=== PATIENT | male | born 1980 | race Caucasian/White ===

== ENCOUNTER 2022-06-17 13:45 | Emergency (ER) | payer OTHER ==
[~2022-06-17] VITALS: Ht 172.7 cm; Wt 106.0 kg
[~2022-06-17 13:45] MED LIST: IBUP-1022 PO; LEVO1TAB39 PO
[2022-06-17 13:46] VITALS: BP 160/80
[2022-06-17] MEDS ORDERED: METO50TA7 (14:47)
[2022-06-17 16:29] LABS: BASO % 0.3 % (0.0-1.0); EOS # 0.1 10^3/uL (0.0-0.5); EOS % 1.2 % (0.0-3.0); HEMATOCRIT 47.9 % (42.0-52.0); HEMOGLOBIN 16.7 g/dl (13.5-17.5); LYMPH % 21.3 % (24.0-44.0); MEAN CORPUSCULAR HEMOGLOBIN 31.4 pg (27.0-33.0); MEAN CORPUSCULAR HGB CONC 34.9 g/dl (32.0-36.5); MONO # 0.5 10^3/uL (0.0-0.8); MONO % 5.6 % (2.0-8.0); NEUTROPHILS # 6.6 10^3/uL (1.5-8.5); NEUTROPHILS % 71.4 % (36.0-66.0); PLATELET COUNT, AUTOMATED 242 10^3/uL (150-450); RED BLOOD COUNT 5.32 10^6/uL (4.30-6.10); WHITE BLOOD COUNT 9.3 10^3/uL (4.0-10.0)
[2022-06-17 16:44] LABS: INR 0.89; PROTHROMBIN TIME 12.3 SECONDS (12.5-14.5)
[2022-06-17 16:45] LABS: PARTIAL THROMBOPLASTIN TIME 30.7 SECONDS (24.8-34.2)
[2022-06-17 17:37] LABS: ALBUMIN 4.7 G/DL (3.2-5.2); ALT/SGPT 75 U/L (7.0-40); BILIRUBIN,DIRECT 0.1 MG/DL (<0.4); BILIRUBIN,TOTAL 0.5 MG/DL (0.3-1.2); BLOOD UREA NITROGEN 16 MG/DL (9-23); CALCIUM LEVEL 10.1 MG/DL (8.5-10.1); CARBON DIOXIDE LEVEL 26 MMOL/L (20-31); CHLORIDE LEVEL 105 MMOL/L (98-107); CK-MB VALUE MASS 1.2 NG/ML (<3.6); CPK CREATINE PHOSPHOKINASE 122 U/L (46-171); CREATININE FOR GFR 0.81 MG/DL (0.70-1.30); FREE T4 1.21 NG/DL (0.89-1.76); GLOMERULAR FILTRATION RATE > 60.0 (>60); GLUCOSE, FASTING 98 MG/DL (60-100); LIPASE 31 U/L (12-53); MB/CK RELATIVE INDEX 0.98 (< OR =4); POTASSIUM SERUM 4.5 MMOL/L (3.5-5.1); SODIUM LEVEL 139 MMOL/L (136-145); TOTAL PROTEIN 7.7 G/DL (5.7-8.2)
[2022-06-17 21:42] LABS: THYROID STIMULATING HORMONE 0.863 uIU/ML (0.55-4.78)
== END 2022-06-17 18:12 | disposition left against medical advice (07) ==
LOC: M ED 13:45
DX: Z53.21 Procedure and treatment not carried out due to patient leaving prior to being seen by health care provider (principal)

== ENCOUNTER → 2022-08-25 | Outpatient (REF) | payer MEDICARE ==
[~2022-08-25] MED LIST changes: +METO50TA7
[2022-08-25 16:38] LABS: HEMATOCRIT 46.9 % (42.0-52.0)
[2022-08-25 16:40] LABS: BASO # 0.1 10^3/uL (0.0-0.2); BASO % 0.8 % (0.0-1.0); EOS # 0.1 10^3/uL (0.0-0.5); EOS % 1.9 % (0.0-3.0); HEMATOCRIT 46.9 % (42.0-52.0); HEMOGLOBIN 15.8 g/dl (13.5-17.5); LYMPH # 1.4 10^3/uL (1.5-5.0); LYMPH % 19.5 % (24.0-44.0); MEAN CORPUSCULAR HEMOGLOBIN 31.8 pg (27.0-33.0); MEAN CORPUSCULAR HGB CONC 33.7 g/dl (32.0-36.5); MEAN CORPUSCULAR VOLUME 94.4 fl (80.0-96.0); MONO # 0.6 10^3/uL (0.0-0.8); MONO % 8.5 % (2.0-8.0); NEUTROPHILS % 68.9 % (36.0-66.0); PLATELET COUNT, AUTOMATED 279 10^3/uL (150-450); RED BLOOD COUNT 4.97 10^6/uL (4.30-6.10); WHITE BLOOD COUNT 7.3 10^3/uL (4.0-10.0)
[2022-08-25 16:47] LABS: ALBUMIN 4.6 G/DL (3.2-5.2); ALKALINE PHOSPHATASE 98 U/L (46-116); ALT/SGPT 107 U/L (7.0-40); AST/SGOT 38 U/L (<34); BILIRUBIN,TOTAL 0.9 MG/DL (0.3-1.2); BLOOD UREA NITROGEN 20 MG/DL (9-23); CALCIUM LEVEL 9.5 MG/DL (8.5-10.1); CARBON DIOXIDE LEVEL 26 MMOL/L (20-31); CHLORIDE LEVEL 104 MMOL/L (98-107); CHOLESTEROL LEVEL 202 MG/DL (<200); CHOLESTEROL RISK RATIO 4.36 (<5); CREATININE FOR GFR 0.84 MG/DL (0.70-1.30); FERRITIN 104.3 NG/ML (10.5-307.3); GLOMERULAR FILTRATION RATE > 60.0 (>60); GLUCOSE, FASTING 99 MG/DL (60-100); HDL CHOLESTEROL 46.3 MG/DL (>40); IRON (FE) 216 UG/DL (65-175); NON-HDL-C 156 MG/DL; SODIUM LEVEL 137 MMOL/L (136-145); TOTAL IRON BINDING CAPACITY 360 UG/DL (250-425); TOTAL PROTEIN 7.5 G/DL (5.7-8.2); TRIGLYCERIDES LEVEL 438 MG/DL (<150)
[2022-08-25 17:23] LABS: VITAMIN B12 LEVEL 287 PG/ML (211-911)
== END ==
LOC: M LAB REF 16:09
PROVIDERS: ATTEND Nurse Practitioner Adult Health
DX: I10 Essential (primary) hypertension (principal); F43.10 Post-traumatic stress disorder, unspecified; R94.5 Abnormal results of liver function studies; D50.9 Iron deficiency anemia, unspecified

== ENCOUNTER → 2022-09-01 | Outpatient (REF) | payer MEDICARE | LOC: M LAB REF 16:20 | PROVIDERS: ATTEND Nurse Practitioner Adult Health | DX: R74.01 Elevation of levels of liver transaminase levels (principal) ==

== ENCOUNTER → 2022-09-10 | Outpatient (CLI) | payer MEDICARE | LOC: M RAD 06:49 | PROVIDERS: ATTEND Nurse Practitioner Adult Health | DX: R94.5 Abnormal results of liver function studies (principal) ==

== ENCOUNTER → 2022-11-23 | Outpatient (CLI) | payer MEDICARE | LOC: M CARPUL 08:17 | PROVIDERS: ATTEND Nurse Practitioner Adult Health | DX: I42.9 Cardiomyopathy, unspecified (principal) ==

== ENCOUNTER → 2023-04-18 | Outpatient (REF) | payer MEDICARE ==
[2023-04-18 18:52] LABS: ALKALINE PHOSPHATASE 119 U/L (46-116); ALT/SGPT 95 U/L (7.0-40); AST/SGOT 60 U/L (<34); BILIRUBIN,TOTAL 0.4 MG/DL (0.3-1.2); BLOOD UREA NITROGEN 19 MG/DL (9-23); CALCIUM LEVEL 9.1 MG/DL (8.5-10.1); CARBON DIOXIDE LEVEL 26 MMOL/L (20-31); CHLORIDE LEVEL 99 MMOL/L (98-107); CREATININE FOR GFR 0.96 MG/DL (0.70-1.30); GLOMERULAR FILTRATION RATE > 60.0 (>60); GLUCOSE, FASTING 92 MG/DL (60-100); SODIUM LEVEL 133 MMOL/L (136-145); TOTAL PROTEIN 7.2 G/DL (5.7-8.2)
== END ==
LOC: M LAB REF 17:02
PROVIDERS: ATTEND Nurse Practitioner Family
DX: I10 Essential (primary) hypertension (principal)

== ENCOUNTER 2024-01-22 21:11 | Emergency (ER) | payer MEDICARE ==
[~2024-01-22] VITALS: Ht 172.7 cm; Wt 118.3 kg
[2024-01-22] MEDS: diphenhydrAMINE 50MG/ML VIAL IM ONE (21:35)
[2024-01-22] MEDS: LORazepam 2 MG/ML 1ML VIAL IM ONE (21:35)
[2024-01-22] MEDS: HALOPERIDOL LACTATE 5MG/ML VIAL IM ONE (21:35)
[2024-01-22 21:39] LABS: HEMATOCRIT 43.4 % (42.0-52.0); MEAN CORPUSCULAR HEMOGLOBIN 32.1 pg (27.0-33.0); MEAN CORPUSCULAR HGB CONC 34.6 g/dl (32.0-36.5); MEAN CORPUSCULAR VOLUME 92.9 fl (80.0-96.0); PLATELET COUNT, AUTOMATED 401 10^3/uL (150-450); RED BLOOD COUNT 4.67 10^6/uL (4.30-6.10); WHITE BLOOD COUNT 10.8 10^3/uL (4.0-10.0)
[2024-01-22 22:08] LABS: ALBUMIN 4.4 G/DL (3.2-5.2); ALKALINE PHOSPHATASE 120 U/L (46-116); ALT/SGPT 43 U/L (7.0-40); AST/SGOT 33 U/L (<34); BILIRUBIN,DIRECT < 0.1 MG/DL (<0.4); BILIRUBIN,TOTAL 0.3 MG/DL (0.3-1.2); BLOOD UREA NITROGEN 17 MG/DL (9-23); CALCIUM LEVEL 10.1 MG/DL (8.5-10.1); CARBON DIOXIDE LEVEL 23 MMOL/L (20-31); CHLORIDE LEVEL 107 MMOL/L (98-107); CREATININE FOR GFR 1.18 MG/DL (0.70-1.30); GLOMERULAR FILTRATION RATE > 60.0 (>60); GLUCOSE, FASTING 148 MG/DL (60-100); POTASSIUM SERUM 3.7 MMOL/L (3.5-5.1); SALICYLATE LEVEL < 3.0 MG/DL (<30); SODIUM LEVEL 140 MMOL/L (136-145); TOTAL PROTEIN 7.7 G/DL (5.7-8.2)
[2024-01-22 22:11] LABS: THYROID STIMULATING HORMONE 3.934 uIU/ML (0.55-4.78)
[2024-01-22 22:17] LABS: AMPHETAMINES LEVEL URINE NEGATIVE (NEGATIVE); BARBITURATES URINE NEGATIVE (NEGATIVE); BENZODIAZEPINES URINE NEGATIVE (NEGATIVE); COCAINE METABOLITE URINE NEGATIVE (NEGATIVE); CPK CREATINE PHOSPHOKINASE 140 U/L (46-171); METHADONE URINE NEGATIVE (NEGATIVE); OPIATES URINE NEGATIVE (NEGATIVE); PHENCYCLIDINE URINE NEGATIVE (NEGATIVE)
[2024-01-22 22:24] LABS: CANNABINOIDS URINE POSITIVE (NEGATIVE)
[2024-01-22] MEDS ORDERED: LORazepam 2 MG TAB PO PRN (23:15)
[2024-01-23] MEDS ORDERED: HYDR-3363 PO (08:48)
[2024-01-23] MEDS ORDERED: D 1010002 PO (08:48)
[2024-01-23] MEDS ORDERED: LITH45TASA PO (08:48)
[2024-01-23] MEDS ORDERED: LOSA100T46 PO (08:48)
[2024-01-23] MEDS ORDERED: CYAN500T3 PO (08:48)
[2024-01-23] MEDS ORDERED: OMEP-173 PO (08:48)
[2024-01-23] MEDS ORDERED: ATOR1TAB21 PO (08:48)
[2024-01-23] MEDS ORDERED: FENO48TA8 PO (08:48)
[2024-01-23] MEDS ORDERED: LATU80TA2 PO (08:48)
[2024-01-23] MEDS ORDERED: DULO1CAP6 PO (08:48)
[2024-01-23] MEDS ORDERED: HOME MED LIST COMPLETE! XX SCH (08:50)
[2024-01-23] MEDS: FOLIC ACID 1MG TAB PO SCH (09:15)
[2024-01-23] MEDS: THIAMINE 100 MG TAB PO SCH (09:15)
[2024-01-23] MEDS: MULTIVITAMINS/MINERALS THERAP 1 TAB PO SCH (09:15)
[2024-01-23 09:16] VITALS: BP 178/98
[2024-01-23] MEDS: LOSARTAN 50MG TABLET PO SCH (09:16)
[2024-01-23 10:33] LABS: LITHIUM LEVEL 0.34 MMOL/L (1.0-1.20)
[2024-01-23] MEDS: NICOTINE 21MG/24HR 1 EA TRANSDERMAL TD SCH (11:54)
[2024-01-23 15:21] VITALS: BP 180/98; TEMP 97.2; O2SAT 94
[2024-01-23] MEDS ORDERED: LITHIUM CARBONATE 150 MG CAP PO SCH (21:00)
[2024-01-24] MEDS ORDERED: DULoxetine 30MG CAPSULE (CYMBALTA) PO SCH (09:00)
== END 2024-01-23 15:47 | disposition home or self-care (01) ==
LOC: M ED 21:11 → EDBD 21:11 → M ED 01-23 15:47
DX: F43.0 Acute stress reaction (principal); F10.120 Alcohol abuse with intoxication, uncomplicated; F19.10 Other psychoactive substance abuse, uncomplicated; R00.0 Tachycardia, unspecified; Z79.899 Other long term (current) drug therapy
CPT/HCPCS: 51701; 70450; 72125; 73130; 80048; 80076; 80143; 80178; 80307; 82077; 82550; 84443; 85027; 87635; 93005; 96372; 99285; J1200; J1630; J2060

== ENCOUNTER 2024-03-03 15:17 | Inpatient (IN) | payer MEDICARE, OTHER ==
[~2024-03-03] VITALS: Ht 172.7 cm; Wt 114.0 kg
[~2024-03-03 15:17] MED LIST changes: +ATOR1TAB21 PO; +CYAN500T3 PO; +D 1010002 PO; +DULO1CAP6 PO; +FENO48TA8 PO; +HYDR-3363 PO; +LATU80TA2 PO; +LITH45TASA PO; +LOSA100T46 PO; +OMEP-173 PO
[2024-03-03 16:18] LABS: HEMATOCRIT 39.6 % (42.0-52.0); HEMOGLOBIN 14.1 g/dl (13.5-17.5); MEAN CORPUSCULAR HEMOGLOBIN 31.9 pg (27.0-33.0); MEAN CORPUSCULAR HGB CONC 35.6 g/dl (32.0-36.5); MEAN CORPUSCULAR VOLUME 89.6 fl (80.0-96.0); PLATELET COUNT, AUTOMATED 306 10^3/uL (150-450); RED BLOOD COUNT 4.42 10^6/uL (4.30-6.10); WHITE BLOOD COUNT 10.9 10^3/uL (4.0-10.0)
[2024-03-03 16:37] LABS: BARBITURATES URINE NEGATIVE (NEGATIVE); COCAINE METABOLITE URINE NEGATIVE (NEGATIVE); METHADONE URINE NEGATIVE (NEGATIVE); OPIATES URINE NEGATIVE (NEGATIVE); PHENCYCLIDINE URINE NEGATIVE (NEGATIVE)
[2024-03-03 16:38] LABS: AMPHETAMINES LEVEL URINE NEGATIVE (NEGATIVE); BENZODIAZEPINES URINE NEGATIVE (NEGATIVE)
[2024-03-03 16:42] LABS: ALBUMIN 4.4 G/DL (3.2-5.2); ALKALINE PHOSPHATASE 106 U/L (46-116); ALT/SGPT 39 U/L (7.0-40); AST/SGOT 28 U/L (<34); BILIRUBIN,DIRECT < 0.1 MG/DL (<0.4); BILIRUBIN,TOTAL 0.4 MG/DL (0.3-1.2); BLOOD UREA NITROGEN 12 MG/DL (9-23); CALCIUM LEVEL 9.3 MG/DL (8.5-10.1); CARBON DIOXIDE LEVEL 21 MMOL/L (20-31); CHLORIDE LEVEL 108 MMOL/L (98-107); CREATININE FOR GFR 1.22 MG/DL (0.70-1.30); GLOMERULAR FILTRATION RATE > 60.0 (>60); GLUCOSE, FASTING 133 MG/DL (60-100); LITHIUM LEVEL 0.45 MMOL/L (1.0-1.20); POTASSIUM SERUM 3.2 MMOL/L (3.5-5.1); SALICYLATE LEVEL < 3.0 MG/DL (<30); SODIUM LEVEL 139 MMOL/L (136-145); TOTAL PROTEIN 7.3 G/DL (5.7-8.2)
[2024-03-03 16:44] LABS: THYROID STIMULATING HORMONE 5.617 uIU/ML (0.55-4.78)
[2024-03-03 16:45] LABS: CANNABINOIDS URINE POSITIVE (NEGATIVE)
[2024-03-03] MEDS: LORazepam 2 MG TAB PO ONE (18:57)
[2024-03-03] MEDS: NICOTINE POLACRILEX 2 MG GUM PO ONE (18:58)
[2024-03-03] MEDS ORDERED: HOME MED LIST COMPLETE! XX SCH (19:55)
[2024-03-04] MEDS: NICOTINE POLACRILEX 2 MG GUM PO ONE ×3 (07:34→22:31)
[2024-03-04] MEDS: CYANOCOBALAMIN 500 MCG TAB PO SCH (09:01)
[2024-03-04] MEDS: DULoxetine 30MG CAPSULE (CYMBALTA) PO SCH (09:01)
[2024-03-04] MEDS: LOSARTAN 50MG TABLET PO SCH (09:02)
[2024-03-04] MEDS: OMEPRAZOLE 20MG CAP PO SCH (09:02)
[2024-03-04] MEDS: ATORVASTATIN 20 MG TAB PO SCH (09:02)
[2024-03-04] MEDS: FENOFIBRATE 48MG TABLET (TRICOR) PO SCH (09:09)
[2024-03-04] MEDS: LITHIUM CARBONATE 450 MG **CR** TAB PO SCH (09:09)
[2024-03-04] MEDS: METOPROLOL TART 50 MG TAB PO ONE ×2 (11:32→13:11)
[2024-03-04] MEDS: LORazepam 2 MG TAB PO ONE (14:24)
[2024-03-04] MEDS: **hydrALAZINE HCL** 25 MG TAB PO ONE ×2 (16:34→22:34)
[2024-03-04] MEDS: LURASIDONE HCL 40MG TAB (LATUDA) PO SCH (21:09)
[2024-03-05] MEDS: METOPROLOL TARTRATE 100MG TAB PO SCH ×2 (08:06→21:11)
[2024-03-05] MEDS: NICOTINE 21MG/24HR 1 EA TRANSDERMAL TD SCH (08:08)
[2024-03-05] MEDS: LORazepam 2 MG TAB PO PRN (08:22)
[2024-03-05] MEDS ORDERED: NICOTINE 14 MG/24 HR TRANSDERMAL TD SCH (09:00)
[2024-03-05] MEDS ORDERED: IBUPROFEN 400MG TAB PO PRN (15:35)
[2024-03-05] MEDS ORDERED: ACETAMINOPHEN TAB 650MG DOSE (2X325MG) PO PRN (15:35)
[2024-03-05] MEDS ORDERED: MOM 30ML SUSPENSION UDC PO PRN (15:35)
[2024-03-05] MEDS ORDERED: MAALOX 30 ML SUSP *UDC PO PRN (15:35)
[2024-03-05 18:53] VITALS: BP 146/98; TEMP 98; O2SAT 97
[2024-03-05] MEDS: diphenhydrAMINE 25MG CAP PO PRN (21:06)
[2024-03-05] MEDS: traZODone 50 MG TAB PO PRN (21:06)
[2024-03-05] MEDS: OMEPRAZOLE 20MG CAP PO SCH (21:06)
[2024-03-05] MEDS: LURASIDONE HCL 40MG TAB (LATUDA) PO SCH (21:07)
[2024-03-05 21:08] VITALS: BP 160/112
[2024-03-05 23:55] VITALS: BP 134/92
[2024-03-06 06:04] VITALS: BP 148/92; TEMP 97.2; O2SAT 96
[2024-03-06] MEDS: DULoxetine 30MG CAPSULE (CYMBALTA) PO SCH (08:10)
[2024-03-06] MEDS: LITHIUM CARBONATE 450 MG **CR** TAB PO SCH (08:10)
[2024-03-06] MEDS: VITAMIN D 1,000 INTERNATIONAL UNITS TABLET PO SCH (08:12)
[2024-03-06] MEDS: FENOFIBRATE 48MG TABLET (TRICOR) PO SCH (08:12)
[2024-03-06] MEDS: CYANOCOBALAMIN 500 MCG TAB PO SCH (08:12)
[2024-03-06] MEDS: LOSARTAN 50MG TABLET PO SCH (08:12)
[2024-03-06] MEDS: ATORVASTATIN 10 MG TAB PO SCH (08:12)
[2024-03-06] MEDS: NICOTINE 21MG/24HR 1 EA TRANSDERMAL TD SCH (08:13)
[2024-03-06 11:57] VITALS: BP 168/100
[2024-03-06] MEDS: POTASSIUM CHLORIDE 10MEQ SR TABLET PO SCH (14:01)
[2024-03-06 15:38] VITALS: BP 126/72; TEMP 97.6; O2SAT 99
[2024-03-06 19:34] LABS: FREE T4 1.14 NG/DL (0.89-1.76)
[2024-03-06 19:41] LABS: BLOOD UREA NITROGEN 17 MG/DL (9-23); CALCIUM LEVEL 9.7 MG/DL (8.5-10.1); CARBON DIOXIDE LEVEL 26 MMOL/L (20-31); CHLORIDE LEVEL 107 MMOL/L (98-107); CREATININE FOR GFR 1.18 MG/DL (0.70-1.30); GLOMERULAR FILTRATION RATE > 60.0 (>60); GLUCOSE, FASTING 138 MG/DL (60-100); POTASSIUM SERUM 4.1 MMOL/L (3.5-5.1); SODIUM LEVEL 139 MMOL/L (136-145)
[2024-03-06 23:03] VITALS: BP 142/92
[2024-03-07 12:53] VITALS: BP 164/120
[2024-03-07] MEDS ORDERED: CHLORTHALIDONE 25 MG TAB PO SCH (13:10)
[2024-03-07] MEDS: cloNIDine 0.1MG TABLET PO SCH (14:12)
[2024-03-07 17:05] VITALS: BP 180/120; TEMP 97.9; O2SAT 99
[2024-03-07] MEDS: cloNIDine 0.2 MG TAB PO ONE (17:21)
[2024-03-07] MEDS: LORazepam 1 MG TAB PO ONE (18:34)
[2024-03-07 23:39] VITALS: BP 154/84
[2024-03-08] MEDS: CARVedilol 12.5 MG TAB PO SCH (09:00)
[2024-03-08] MEDS: CAPTOpril 12.5 MG TAB PO SCH (09:16)
[2024-03-08] MEDS ORDERED: LORazepam 2 MG TAB PO PRN (10:15)
[2024-03-08] MEDS: MULTIVITAMINS/MINERALS THERAP 1 TAB PO SCH (11:02)
[2024-03-08] MEDS: THIAMINE 100 MG TAB PO SCH (11:02)
[2024-03-08] MEDS: FOLIC ACID 1MG TAB PO SCH (11:02)
[2024-03-08 11:11] VITALS: BP 179/81
[2024-03-08 17:24] VITALS: BP 164/84; TEMP 97.8; O2SAT 99
[2024-03-09] VITALS (7 sets, daily range): BP systolic 125–190; BP diastolic 58–119; TEMP 97.1–97.6; O2SAT 97–99
[2024-03-09] MEDS: LOSARTAN 50MG TABLET PO SCH (08:34)
[2024-03-10] VITALS (7 sets, daily range): BP systolic 130–162; BP diastolic 71–98; TEMP 97–98; O2SAT 97–99
[2024-03-11 06:21] VITALS: BP 130/88; TEMP 96.8; O2SAT 98
[2024-03-11 08:00] VITALS: BP 130/88
[2024-03-11 14:00] VITALS: BP 149/82
[2024-03-11 17:25] VITALS: BP 149/82; TEMP 98.5
[2024-03-11 23:03] VITALS: BP 130/73
[2024-03-12 06:45] VITALS: BP 164/84; TEMP 96.9; O2SAT 96
[2024-03-12 08:20] VITALS: BP 180/81
[2024-03-12] MEDS ORDERED: CLONI1TA PO (08:31)
[2024-03-12] MEDS ORDERED: CARV12.5 PO (08:31)
[2024-03-12] MEDS ORDERED: FOLI1TAB11 PO (08:31)
== END 2024-03-12 11:03 | disposition home or self-care (01) | DRG 885 ==
LOC: M ED 15:17 → M ED INP 03-05 15:34 → M PSY 03-05 17:07
PROVIDERS: ADMIT Psychiatry & Neurology Child & Adolescent Psychiatry; ATTEND Psychiatry & Neurology Child & Adolescent Psychiatry
DX: F33.9 Major depressive disorder, recurrent, unspecified (principal); Z59.00 Homelessness unspecified; F10.20 Alcohol dependence, uncomplicated; I10 Essential (primary) hypertension; E78.5 Hyperlipidemia, unspecified; E55.9 Vitamin D deficiency, unspecified; K21.9 Gastro-esophageal reflux disease without esophagitis; F17.210 Nicotine dependence, cigarettes, uncomplicated; Z56.0 Unemployment, unspecified; E87.6 Hypokalemia; E02 Subclinical iodine-deficiency hypothyroidism; Z79.899 Other long term (current) drug therapy; Z62.819 Personal history of unspecified abuse in childhood; Z81.8 Family history of other mental and behavioral disorders; Z63.8 Other specified problems related to primary support group

== ENCOUNTER 2024-03-14 10:06 | Emergency (ER) | payer OTHER ==
[~2024-03-14] VITALS: Ht 172.7 cm; Wt 113.3 kg
[~2024-03-14 10:06] MED LIST changes: +CARV12.5 PO; +CLONI1TA PO; +FOLI1TAB11 PO
[2024-03-14 10:07] VITALS: TEMP 97.6
[2024-03-14 10:46] LABS: HEMATOCRIT 39.8 % (42.0-52.0); HEMOGLOBIN 13.9 g/dl (13.5-17.5); MEAN CORPUSCULAR HEMOGLOBIN 32.2 pg (27.0-33.0); MEAN CORPUSCULAR HGB CONC 34.9 g/dl (32.0-36.5); MEAN CORPUSCULAR VOLUME 92.1 fl (80.0-96.0); PLATELET COUNT, AUTOMATED 345 10^3/uL (150-450); RED BLOOD COUNT 4.32 10^6/uL (4.30-6.10); WHITE BLOOD COUNT 9.4 10^3/uL (4.0-10.0)
[2024-03-14] MEDS: NS 1,000 ML IV ONE (11:09)
[2024-03-14 11:16] LABS: ETHYL ALCOHOL (ETHANOL) < 0.003 % (0.000-0.010)
[2024-03-14 11:17] LABS: SALICYLATE LEVEL < 3.0 MG/DL (<30)
[2024-03-14 11:18] LABS: ALBUMIN 4.4 G/DL (3.2-5.2); ALKALINE PHOSPHATASE 111 U/L (46-116); ALT/SGPT 36 U/L (7.0-40); AST/SGOT 21 U/L (<34); BILIRUBIN,DIRECT 0.2 MG/DL (<0.4); BILIRUBIN,TOTAL 0.6 MG/DL (0.3-1.2); BLOOD UREA NITROGEN 12 MG/DL (9-23); CALCIUM LEVEL 9.7 MG/DL (8.5-10.1); CARBON DIOXIDE LEVEL 26 MMOL/L (20-31); CHLORIDE LEVEL 109 MMOL/L (98-107); CREATININE FOR GFR 1.01 MG/DL (0.70-1.30); GLOMERULAR FILTRATION RATE > 60.0 (>60); GLUCOSE, FASTING 165 MG/DL (60-100); POTASSIUM SERUM 3.8 MMOL/L (3.5-5.1); SODIUM LEVEL 142 MMOL/L (136-145); TOTAL PROTEIN 7.4 G/DL (5.7-8.2)
[2024-03-14 11:20] LABS: THYROID STIMULATING HORMONE 2.996 uIU/ML (0.55-4.78)
[2024-03-14 11:39] LABS: BARBITURATES URINE NEGATIVE (NEGATIVE)
[2024-03-14 11:40] LABS: AMPHETAMINES LEVEL URINE NEGATIVE (NEGATIVE); BENZODIAZEPINES URINE NEGATIVE (NEGATIVE); COCAINE METABOLITE URINE NEGATIVE (NEGATIVE); METHADONE URINE NEGATIVE (NEGATIVE); OPIATES URINE NEGATIVE (NEGATIVE); PHENCYCLIDINE URINE NEGATIVE (NEGATIVE)
[2024-03-14 11:44] LABS: CANNABINOIDS URINE POSITIVE (NEGATIVE)
[2024-03-14 11:48] LABS: CK-MB VALUE MASS 1.7 NG/ML (<3.6)
[2024-03-14 11:49] LABS: CPK CREATINE PHOSPHOKINASE 304 U/L (46-171); MB/CK RELATIVE INDEX 0.55 (< OR =4)
[2024-03-14 12:20] LABS: CK-MB VALUE MASS 1.1 NG/ML (<3.6); MB/CK RELATIVE INDEX 0.42 (< OR =4)
[2024-03-14 12:23] LABS: LITHIUM LEVEL 0.4 MMOL/L (1.0-1.20)
[2024-03-14] MEDS ORDERED: CARV25TA PO (13:49)
[2024-03-14] MEDS ORDERED: FOLI1TAB11 PO (13:49)
[2024-03-14] MEDS ORDERED: ATOR1TAB19 PO (13:49)
[2024-03-14] MEDS ORDERED: CLONI1TA PO (13:49)
[2024-03-14] MEDS ORDERED: HOME MED LIST COMPLETE! XX SCH (13:50)
[2024-03-14] MEDS: NICOTINE 21MG/24HR 1 EA TRANSDERMAL TD ONE (13:56)
[2024-03-14 16:30] VITALS: BP 149/87
[2024-03-14 16:36] VITALS: O2SAT 95
[2024-03-14] MEDS ORDERED: LURASIDONE 20 MG TAB (LATUDA) PO SCH (18:00)
[2024-03-14] MEDS ORDERED: cloNIDine 0.1MG TABLET PO SCH (21:00)
[2024-03-14] MEDS ORDERED: CARVedilol 12.5 MG TAB PO SCH (21:00)
[2024-03-15] MEDS ORDERED: LITHIUM CARBONATE 450 MG **CR** TAB PO SCH (09:00)
[2024-03-15] MEDS ORDERED: DULoxetine 30MG CAPSULE (CYMBALTA) PO SCH (09:00)
[2024-03-15] MEDS ORDERED: FOLIC ACID 1MG TAB PO SCH (09:00)
[2024-03-15] MEDS ORDERED: OMEPRAZOLE 20MG CAP PO SCH (09:00)
[2024-03-15] MEDS ORDERED: ATORVASTATIN 20 MG TAB PO SCH (09:00)
[2024-03-15] MEDS ORDERED: LOSARTAN 50MG TABLET PO SCH (09:00)
[2024-03-15] MEDS ORDERED: FENOFIBRATE 48MG TABLET (TRICOR) PO SCH (09:00)
== END 2024-03-14 16:50 | disposition home or self-care (01) ==
LOC: M ED 10:06
DX: R55 Syncope and collapse (principal); F32.A Depression, unspecified; F10.10 Alcohol abuse, uncomplicated; I45.81 Long QT syndrome; I10 Essential (primary) hypertension; I25.2 Old myocardial infarction; K21.9 Gastro-esophageal reflux disease without esophagitis; F41.9 Anxiety disorder, unspecified; F31.9 Bipolar disorder, unspecified; F17.200 Nicotine dependence, unspecified, uncomplicated; Z79.02 Long term (current) use of antithrombotics/antiplatelets; Z79.811 Long term (current) use of aromatase inhibitors; Z79.899 Other long term (current) drug therapy